=== PATIENT | female | born 1985 | race Caucasian/White ===

== ENCOUNTER 2017-04-04 13:39 | Outpatient (CLI) | payer OTHER ==
[2017-04-04] MEDS: TERBUTALINE 1 MG/ML INJ SC (15:03)
[2017-04-04] MEDS: LACTATED RINGER'S 1,000 ML IV (15:03)
[2017-04-04 15:30] LABS: ADD UMIC YES; UR ASCORBIC ACID NEGATIVE (NEGATIVE); UR BILIRUBIN (Dip) NEGATIVE (NEGATIVE); UR BLOOD (Dip) NEGATIVE (NEGATIVE); UR CLARITY SLIGHTLY CLOUDY (CLEAR); UR COLOR AMBER (YELLOW); UR GLUCOSE (Dip) 1+ mg/dL (NEGATIVE); UR KETONES (Dip) 2+ mg/dL (NEGATIVE); UR LEUKOCYTE ESTERASE (Dip) NEGATIVE Leu/ul (NEGATIVE); UR MUCUS MANY /HPF (NONE SEEN); UR NITRITE (Dip) NEGATIVE (NEGATIVE); UR RBC 2 /HPF (0-5); UR SPECIFIC GRAVITY (Dip) 1.027 (1.003-1.030); UR SQUAMOUS EPITHELIAL CELL MODERATE /HPF (FEW); UR TOTAL PROTEIN (Dip) 1+ mg/dl (NEGATIVE); UR UROBILINOGEN (Dip) NEGATIVE (NEGATIVE); UR WBC 4 /HPF (0-5)
== END 2017-04-04 18:00 | disposition home or self-care (01) ==
LOC: OBT 13:39 → L-D 13:39 → OBT 18:00
DX: O26.893 Other specified pregnancy related conditions, third trimester (principal); Z3A.29 29 weeks gestation of pregnancy; R10.2 Pelvic and perineal pain
CPT/HCPCS: 36415; 76817; 76818; 81001; 87086; 96360; 96361; 96372

== ENCOUNTER 2017-12-06 05:56 | Day surgery (SDC) | payer OTHER ==
[2017-12-06 06:45] LABS: ADD MAN DIFF? NO
[2017-12-06] MEDS: LACTATED RINGER'S 1,000 ML IV* (06:48)
[2017-12-06 06:51] LABS: BASOPHILS % 0.4 % (0.0-2.0); EOSINOPHILS % 0.4 % (0.0-7.0); HEMATOCRIT 39.9 % (37.0-47.0); LYMPHOCYTES % 12.2 % (15.0-51.0); MEAN CORPUSCULAR HEMOGLOBIN 30.1 pg (29.0-33.0); MEAN CORPUSCULAR HGB CONC 32.6 g/dl (32.0-37.0); MEAN CORPUSCULAR VOLUME 92.4 fl (82.0-101.0); MEAN PLATELET VOLUME 11.6 fl (7.4-10.4); MONOCYTE # 0.3 10^3/ul (0.3-0.9); MONOCYTES % 3.3 % (0.0-11.0); NEUTROPHIL # 6.5 10^3/ul (1.6-7.5); NEUTROPHILS % 83.4 % (39.0-77.0); PLATELET COUNT 250 10^3/UL (140-415); RED BLOOD COUNT 4.32 10^6/ul (4.20-5.40); RED CELL DISTRIBUTION WIDTH 14.2 % (11.5-14.5)
[2017-12-06 06:51] LABS: WHITE BLOOD COUNT 7.8 10^3/ul (4.8-10.8)
[2017-12-06 07:06] LABS: INR 0.99; PARTIAL THROMBOPLASTIN TIME 27.9 Sec (23.0-35.0); PROTIME 13.2 Sec (11.9-14.9)
[2017-12-06] MEDS ORDERED: METOCLOPRAMIDE 10 MG INJ (07:27)
[2017-12-06] MEDS ORDERED: MIDAZOLAM 1 MG/ML 2 ML INJ (07:27)
[2017-12-06] MEDS ORDERED: KETOROLAC 15 MG INJ IV (07:30)
[2017-12-06] MEDS ORDERED: DIPHENHYDRAMINE 50 MG INJ IV (07:30)
[2017-12-06] MEDS ORDERED: OXYCODONE/ACETAMINOPHEN (5/325) TAB PO (07:30)
[2017-12-06] MEDS ORDERED: MEPERIDINE 25 MG INJ IV (07:30)
[2017-12-06] MEDS ORDERED: ALBUTEROL 0.083% (NEB) 2.5 MG/3 ML AMP HHN (07:30)
[2017-12-06] MEDS ORDERED: MIDAZOLAM 1 MG/ML 2 ML INJ IV (07:30)
[2017-12-06] MEDS ORDERED: LABETALOL HCL 20MG INJ IV (07:30)
[2017-12-06] MEDS ORDERED: ONDANSETRON 4 MG INJ IV (07:30)
[2017-12-06] MEDS ORDERED: hydrALAzine 20 MG INJ IV (07:30)
[2017-12-06] MEDS ORDERED: HYDROmorphONE 1 MG/5 ML IV SYRINGE IV ×3 (07:30)
[2017-12-06] MEDS ORDERED: ROPIVACAINE 0.5 % 30 ML VIAL (07:33)
[2017-12-06] MEDS ORDERED: PROPOFOL 20 ML (08:23)
[2017-12-06] MEDS ORDERED: FENTAnyl 50 MCG/ML VIAL (08:23)
[2017-12-06] MEDS ORDERED: NEOSTIGMINE 3 MG/3 ML SYRINGE (08:23)
[2017-12-06] MEDS ORDERED: ROCURONIUM 50 MG INJ (08:23)
[2017-12-06] MEDS ORDERED: KETOROLAC 30 MG INJ (08:23)
[2017-12-06] MEDS ORDERED: ONDANSETRON 4 MG INJ (08:23)
[2017-12-06] MEDS ORDERED: GLYCOPYRROLATE 0.4 MG INJ (08:41)
[2017-12-06] MEDS: OXYCODONE/ACETAMINOPHEN (5/325) TAB PO ×2 (09:57→09:58)
== END 2017-12-06 10:30 | disposition home or self-care (01) ==
LOC: SDS 05:56
DX: Z30.2 Encounter for sterilization (principal)
CPT/HCPCS: 58670; 85025; 85610; 85730